=== PATIENT | male | born 1975 | race Caucasian/White ===

== ENCOUNTER 2024-05-24 16:19 | Emergency (ER) | payer BC ==
[2024-05-24] MEDS: cefTRIAXone 1 GM Vial IM ONE (17:57)
[2024-05-24] MEDS: Diphtheria,Pertussis(Acell),Tetanus Vaccine 0.5 ML Syringe IM ONE (17:58)
[2024-05-24] MEDS: Lidocaine 1% 5 ML VIAL INJECT ONE (18:02)
[2024-05-24] MEDS: Bacitracin/Neomycin/Polymyxin B Oint 28.4 GM Tube TOP ONE (18:41)
[2024-05-24] MEDS: Take Home: Cephalexin 500 MG Cap, 6 Cap Pack PO SCH (18:41)
[2024-05-24] MEDS: Bacitracin/Neomycin/Polymyxin B Oint 28.4 GM Tube TOP SCH (18:42)
[2024-05-24] MEDS ORDERED: Take Home: Cephalexin 500 MG Cap, 6 Cap Pack PO SCH (18:45)
== END 2024-05-24 18:55 | disposition home or self-care (01) ==
LOC: DL.ED 16:19
DX: S60.455A Superficial foreign body of left ring finger, initial encounter (principal); E11.9 Type 2 diabetes mellitus without complications; Z23 Encounter for immunization; Z87.891 Personal history of nicotine dependence; W45.8XXA Other foreign body or object entering through skin, initial encounter
CPT/HCPCS: 73130; 90471; 90715; 96372; 99283; A9270; J0696; J3490